=== PATIENT | male | born 1935 | race Caucasian/White ===

== ENCOUNTER 2020-06-21 17:39 | Emergency (ER) | payer MEDICARE ==
[~2020-06-21] VITALS: Ht 172.7 cm; Wt 90.7 kg
[~2020-06-21 17:39] MED LIST: ASPI81CH PO; Chondroitin Su250 MG PO; Cinnamon500 MG PO; FISH1000 PO; GLUC500 PO; Glucoten Caple1 EACH PO; LISI20 PO; METF500 PO; OMEP40CA12 PO; SIME80CH PO
[2020-06-21 18:14] LABS: BASOPHILS ABSOLUTE AUTO 0.09 K/mm3 (0.00-0.23); BASOPHILS PERCENT AUTO 1 % (0-2); EOSINOPHILS ABSOLUTE AUTO 0.12 K/mm3 (0.00-0.68); EOSINOPHILS PERCENT AUTO 1 % (0-6); Hematocrit 47.1 % (37.0-53.0); Hemoglobin 14.9 g/dL (13.5-17.5); IMMATURE GRAN ABSOLUTE AUTO 0.09 K/mm3 (0.00-0.10); IMMATURE GRAN PERCENT AUTO 1 % (0-1); LYMPHOCYTES ABSOLUTE AUTO 1.32 K/mm3 (0.84-5.20); LYMPHOCYTES PERCENT AUTO 10 % (21-46); MONOCYTES ABSOLUTE AUTO 0.98 K/mm3 (0.16-1.47); MONOCYTES PERCENT AUTO 7 % (4-13); Mean Corpuscular HGB Conc 31.6 g/dL (31.5-36.5); Mean Corpuscular Volume 92 fL (80-100); Mean Platelet Volume 11.3 fL (9.1-12.4); NEUTROPHILS PERCENT AUTO 80 % (41-73); Platelet Count 198 K/mm3 (150-400); RDW Coefficient Variation 13.4 % (11.7-14.2); RDW Standard Deviation 46.1 fL (35.1-46.3); Red Blood Cell Count 5.13 M/mm3 (4.30-5.90)
[2020-06-21 18:30] LABS: International Normalized Ratio 0.97; Prothrombin Time Results 10.4 Sec (9.7-11.5)
[2020-06-21 18:37] LABS: Troponin I <0.015 ng/mL (0.000-0.040)
[2020-06-21 18:44] LABS: Alanine Aminotransfer (ALT/SGP 39 U/L (12-78); Albumin, Blood 3.7 g/dL (3.4-5.0); Alk Phos 84 U/L (50-136); Anion Gap 6 mmol/L (6-16); Aspartate Aminotrans (AST/SGOT 34 U/L (12-37); Bilirubin, Total 0.4 mg/dL (0.1-1.0); Blood Urea Nitrogen 53 mg/dL (8-24); Bun/Creatinine Ratio 34.9 (12.0-20.0); CO2, Blood 19 mmol/L (21-32); Calcium, Blood 8.7 mg/dL (8.5-10.1); Chloride, Blood 117 mmol/L (98-108); Creatinine, Blood 1.52 mg/dL (0.60-1.20); Globulin, Blood 3.6 g/dL (2.2-4.0); Glomerular Filtration Rate 47 (60-); Glucose, Blood 162 mg/dL (70-99); Potassium, Blood 6.6 mmol/L (3.5-5.5); Sodium, Blood 142 mmol/L (136-145); Total Protein, Blood 7.3 g/dL (6.4-8.2)
== END 2020-06-21 19:40 | disposition short-term general hospital (02) ==
LOC: ER 17:39
PROVIDERS: Physician Assistant
DX: S02.19XA Other fracture of base of skull, initial encounter for closed fracture (principal); S06.6X9A Traumatic subarachnoid hemorrhage with loss of consciousness of unspecified duration, initial encounter; S27.0XXA Traumatic pneumothorax, initial encounter; S22.41XA Multiple fractures of ribs, right side, initial encounter for closed fracture; N32.9 Bladder disorder, unspecified; E87.5 Hyperkalemia; I10 Essential (primary) hypertension; E11.9 Type 2 diabetes mellitus without complications; E78.5 Hyperlipidemia, unspecified; Z79.82 Long term (current) use of aspirin; Z79.899 Other long term (current) drug therapy; Z91.02 Food additives allergy status; W10.9XXA Fall (on) (from) unspecified stairs and steps, initial encounter
CPT/HCPCS: 29105; 70450; 71260; 72125; 73030; 74177; 80053; 84484; 85025; 85610; 85730; 90471; 90714; 93005; 93010; 96365-59; 96375-59; 99285-25; J0295; J0610; J1815; J7030; Q9967; U0003

== ENCOUNTER 2020-11-02 10:21 | Emergency (ER) | payer MEDICARE ==
[~2020-11-02] VITALS: Ht 180.3 cm; Wt 83.9 kg
[2020-11-02] MEDS ORDERED: LIDO700A20 TOP (10:45)
== END 2020-11-02 11:00 | disposition home or self-care (01) ==
LOC: ER 10:21
DX: S39.011A Strain of muscle, fascia and tendon of abdomen, initial encounter (principal); I10 Essential (primary) hypertension; E11.9 Type 2 diabetes mellitus without complications; E78.5 Hyperlipidemia, unspecified; Z79.82 Long term (current) use of aspirin; Z79.899 Other long term (current) drug therapy; X58.XXXA Exposure to other specified factors, initial encounter; Y93.89 Activity, other specified
CPT/HCPCS: 99282